=== PATIENT | female | born 1995 | race Caucasian/White ===

== ENCOUNTER 2016-03-27 14:07 | Emergency (ER) | payer OTHER ==
[~2016-03-27] VITALS: Ht 165.1 cm; Wt 100.0 kg
[~2016-03-27 14:07] MED LIST: LORT7.5T3 PO; PROM25SU8 PO; SYNT25TA PO
[2016-03-27 14:10] VITALS: BP 183/98; PULSE 102; RESP 16; TEMP 98.1; O2SAT 100
[2016-03-27] MEDS ORDERED: LEVO25TA4 PO (14:25)
[2016-03-27] MEDS ORDERED: ERYTOIN10 RIGHT EYE (14:49)
--- NOTE | 2016-03-27 14:49 | PD ---
HPI Chief Complaint: Eye Problems/Injury Time Seen by Provider: 14:46 Travel History International Travel<30 days: No Contact w/Intl Traveler<30days: No Traveled to known affect area: No History of Present Illness HPI Patient comes in complaining of possible pinkeye on the right that she awoke with this morning. Patient states last night she began having itching water out of her right eye that she thought was just allergies. Patient is doing anything for this. Patient states this morning when she woke her right eye was crusted/matted shut. Patient associated burning sensation in her right eye without radiation. Patient denies any change in vision, contact use, eye makeup use, foreign body sensation, or being around anyone else with similar. PFSH Past Medical History Immunizations Current: Yes Thyroid Disease: Yes (hypothyroid) ?: Not : 0 Past Surgical History Other Surgery: Yes (EAR TUBES CHILD) Social History Alcohol Use: No Tobacco Use: No Substance Use: No Allergies-Medications (Allergen,Severity, Reaction): Coded Allergies: No Known Allergies (Unverified , 03/27/16) Reported Meds & Prescriptions Reported Meds & Active Scripts Active Erythromycin Opth Oint 5 Mg/Gm Oint 1 Applic RIGHT EYE QID 7 Days Reported Levothyroxine (Levothyroxine Sodium) 25 Mcg Tab 25 Mcg PO DAILY Review of Systems Except as stated in HPI: all other systems reviewed are Neg Physical Exam Narrative GENERAL: Well-developed, overly nourished, in no acute distress, and non-ill appearing. SKIN: Warm and dry. HEAD: Atraumatic. Normocephalic. EYES: Pupils equal and round. EOMI. No scleral icterus. Injection conjunctivae without drainage. ENT: No nasal bleeding or discharge. Mucous membranes pink and moist. NECK: Trachea midline. Supple. No nuclear rigidity. RESPIRATORY: No accessory muscle use. No respiratory distress. MUSCULOSKELETAL: No obvious deformities. No clubbing. No cyanosis. No edema. Full range of motion. NEUROLOGICAL: Awake and alert. No obvious cranial nerve deficits. Motor grossly within normal limits. Normal speech. PSYCHIATRIC: Appropriate mood and affect; insight and judgment normal. Data Data Last Documented VS Vital Signs Date Time Temp Pulse Resp B/P Pulse Ox O2 Delivery O2 Flow Rate FiO2 03/27/16 14:10 98.1 102 16 183/98 100 Room Air MDM Medical Decision Making Medical Screen Exam Complete: Yes Emergency Medical Condition: Yes Differential Diagnosis Viral conjunctivitis, bacterial conjunctivitis, allergic conjunctivitis, blepharitis, other Narrative Course Patient with mild conjunctivitis. No evidence of foreign body by history or exam. No history to suspect corneal ulceration as well. There is no evidence of iritis, glaucoma, preseptal cellulitis, periorbital or orbital cellulitis. Will place patient on ophthalmologic antibiotics for nonspecific conjunctivitis. This was discussed with the patient. The patient was instructed to follow up with their physician, pottery decorator, or return here if worsened, increased pain, decreased vision, swelling around the eye or as needed. The patient agreed with plan. Patient in no obvious distress upon re-evaluation. Patient was asked if they wanted to speak to my attending, which the patient did not wish to do at this time. Any questions/concerns in reference to patient diagnosis/condition discussed and clarified prior to patient's discharge. Reinforced sheer importance of close follow up with patient's primary physician or primary care clinic and/or pottery decorator. Instructed patient to return to ED immediately, if symptoms return/worsen. Pt showed understanding of above instructions. Further instructions and recommendations were detailed in discharge paperwork. Pt ambulated without difficulty out of ED at discharge. Diagnosis Primary Impression: Conjunctivitis Qualified Code: H10.31 - Acute conjunctivitis of right eye, unspecified acute conjunctivitis type Referrals: Janessa Doll MD Patient Instructions: Conjunctivitis (ED), General Instructions Additional Instructions: Follow-up with your primary care physician and/or pottery decorator in 2-3 days for reevaluation. Take all medication as prescribed. Return to the emergency department if symptoms get worse. Med/Other Pt SpecificInfo: Prescription(s) given Scripts Erythromycin Opth Oint 5 Mg/Gm Oint1 Applic RIGHT EYE QID 7 Days Ref 0 Prov:Zoila Grififn MD 03/27/16 Disposition: 01 DISCHARGE HOME Condition: Stable Berry Raza Mar 27, 2016 14:49
== END 2016-03-27 14:59 | disposition home or self-care (01) ==
LOC: NEPB 14:07
DX: H10.31 Unspecified acute conjunctivitis, right eye (principal); E03.9 Hypothyroidism, unspecified
CPT/HCPCS: 99282